=== PATIENT | female | born 1990 | race Caucasian/White ===

== ENCOUNTER 2017-02-28 09:53 | Emergency (ER) | payer OTHER ==
[~2017-02-28] VITALS: Ht 167.6 cm; Wt 61.5 kg
[2017-02-28 09:58] VITALS: BP 109/61
--- NOTE | 2017-02-28 10:10 | NUR ---
27/F BIB FAMILY C/O SHARP LOWER ABDOMINAL PAIN NON RADIATING X TODAY.---DENIES DYSURIA, NO VAG BLEEDING. PT STATED PT JUST FINISHED HER PERIOD YESTERDAY.DENIES N/V/D; SKIN IS PINK/WARM/DRY; AAOX4 WITH EVEN AND STEADY GAIT; LUNGS CLEAR BL; HR EVEN AND REGULAR; PT DENIES ANY FEVER, CP, SOB, OR COUGH AT THIS TIME; PATIENT STATES PAIN OF 10/10 AT THIS TIME; VSS; PATIENT POSITIONED FOR COMFORT; HOB ELEVATED; BEDRAILS UP X2; BED DOWN. ER MD MADE AWARE OF PT STATUS.
--- NOTE | 2017-02-28 11:17 | NUR ---
DR. BERNAL AT BEDSIDE
[2017-02-28] MEDS ORDERED: MORPHINE SULFATE 2 MG/ML SYR IVP ONE (11:25)
[2017-02-28] MEDS ORDERED: NACL 0.9% 1,000 ML IV ONE ×2 (11:25→13:05)
--- NOTE | 2017-02-28 11:32 | NUR ---
PT TAKEN TO US VIA /C ACCOMPANIED BY LANDSCAPING SPECIALIST
--- NOTE | 2017-02-28 13:00 | NUR ---
Patient appears to be resting comfortably in bed. Vital Signs within normal limits. Respirations even and unlabored.WILL CONTINUE TO MONITOR.
[2017-02-28] MEDS ORDERED: cefTRIAXone 1,000 MG VIAL ONE (13:01)
--- NOTE | 2017-02-28 13:51 | NUR ---
Adama beltre in [facility] - 02/28/17 at 1419 by [email or web address] PT TAKEN TO CT VIA JUAN M ACCOMPANIED BY SPECIAL EDUCATION INSTRUCTOR.
--- NOTE | 2017-02-28 14:03 | NUR ---
WENT TO CT VIA WHEELCHAIR, ASSISTED BY FAMILY
--- NOTE | 2017-02-28 14:37 | NUR ---
DISCUSS WITH PT TO EAT NUTRITIOUS FOOD AND FLUID INTAKE AND PT AGREED WITH IT.
--- NOTE | 2017-02-28 14:38 | NUR ---
WENT TO THE BATHROOM AT THIS TIME, PT GINA
[2017-02-28] MEDS ORDERED: ONDANSETRON 4 MG ODT PO ONE (15:00)
[2017-02-28] MEDS: HYDROcodone/APAP 5/325 MG 1 TAB TAB PO ONE ×2 (15:09→15:43)
[2017-02-28] MEDS ORDERED: ONDANSETRON 4 MG/2 ML VIAL IVP ONE (15:15)
--- NOTE | 2017-02-28 15:15 | NUR ---
REPORTED TO PT VOMITTED YELLOWISH CLEAR OUTPUT AFTER GIVING THE ZOFRAN ODT,
--- NOTE | 2017-02-28 15:24 | NUR ---
PT REFUSED NORCO AT THIS TIME, WILL OFFER LATER, JUST RECEIVE ZOFRAN IV
--- NOTE | 2017-02-28 15:39 | NUR ---
DR. BERNAL AT BEDSIDE
--- NOTE | 2017-02-28 15:44 | NUR ---
PT ONLY WANT TO TAKE ONE NORCO
[2017-02-28 16:00] VITALS: BP 100/62
--- NOTE | 2017-02-28 16:01 | NUR ---
Patient discharged with v/s stable. Written and verbal after care instructions given and explained. Patient alert, oriented and verbalized understanding of instructions. Ambulatory with steady gait. All questions addressed prior to discharge. ID band removed. Patient advised to follow up with PMD. Rx of ZOFRAN,CIPRO AND IBUPROFEN given. Patient educated on indication of medication including possible reaction and side effects. Opportunity to ask questions provided and answered.ENCOURAGED FLUID INTAKE AND PT AGREED WITH IT,COPY OF LABS GIVEN AND ADDRESS OF [facility] GIVEN TO FOLLOW UP
== END 2017-02-28 16:01 | disposition home or self-care (01) ==
LOC: MED 09:53
DX: N39.0 Urinary tract infection, site not specified (principal); N83.8 Other noninflammatory disorders of ovary, fallopian tube and broad ligament
CPT/HCPCS: 36415; 74177; 76830; 80053; 81001; 81025; 82150; 83605; 83690; 85025; 87086; 87186; 96361; 96365; 96375; 99285; J0696; J2270; J2405; J7030; J7060; Q9967; S0119

== ENCOUNTER 2018-01-26 13:21 | Emergency (ER) | payer OTHER ==
[~2018-01-26] VITALS: Ht 165.1 cm; Wt 62.3 kg
[2018-01-26 13:43] VITALS: BP 104/67
[2018-01-26 13:48] VITALS: BP 104/67
--- NOTE | 2018-01-26 14:09 | NUR ---
28/F C/O LEFT BREAST PAIN X5 DAYS. DENIES PAST MEDICAL HISTORY. 07/01 PAIN, DENIES MEDICATION USE. DENIES N/V/D; SKIN IS PINK/WARM/DRY; AAOX4 WITH EVEN AND STEADY GAIT; LUNGS CLEAR BL; HR EVEN AND REGULAR; PT DENIES ANY FEVER, CP, SOB, OR COUGH AT THIS TIME; VSS; PATIENT POSITIONED FOR COMFORT; HOB ELEVATED; BEDRAILS UP X2; BED DOWN. ER MD MADE AWARE OF PT STATUS.
[2018-01-26] MEDS ORDERED: KETOROLAC 30 MG/ML VIAL IM ONE (14:30)
[2018-01-26 15:03] LABS: BASOPHILS # (AUTO) 0.1 K/uL (0.00-0.22); BASOPHILS % (AUTO) 0.6 % (0.0-2.0); EOSINOPHILS # (AUTO) 0.1 K/uL (0-0.4); EOSINOPHILS % (AUTO) 1.4 % (0.0-4.0); HEMATOCRIT 36.9 % (36-48); HEMOGLOBIN 12.2 g/dL (12.0-16.0); LYMPHOCYTES # (AUTO) 2.3 K/uL (2.5-16.5); LYMPHOCYTES % (AUTO) 26.5 % (20.5-51.1); MEAN CORPUSCULAR HEMOGLOBIN 30 pg (27-31); MEAN CORPUSCULAR HGB CONC 33 g/dL (33-37); MEAN CORPUSCULAR VOLUME 90.8 fL (80-94); MONOCYTES # (AUTO) 0.9 K/uL (0.8-1.0); MONOCYTES % (AUTO) 10.3 % (1.7-9.3); NEUTROPHILS # (AUTO) 5.4 K/uL (1.8-7.7); NEUTROPHILS % (AUTO) 61.2 % (42.2-75.2); PLATELET COUNT (AUTO) 264 K/uL (140-450); RED BLOOD CELL COUNT(AUTO) 4.06 MIL/uL (4.20-5.40); RED CELL DISTRIBUTION WIDTH 12.8 % (11.6-13.7); WHITE BLOOD COUNT (AUTO) 8.8 K/uL (4.8-10.8)
[2018-01-26 15:12] LABS: ANION GAP 12.6 (8-16); CARBON DIOXIDE 27.1 mmol/L (21-32); CREATININE 0.7 mg/dL (0.6-1.3); POTASSIUM 3.7 mmol/L (3.5-5.1)
[2018-01-26 15:18] LABS: ALBUMIN 3.8 g/dL (3.4-5.0); TOTAL BILIRUBIN 0.1 mg/dL (0.0-1.0)
[2018-01-26 15:44] LABS: CREATINE KINASE MB 0.3 ng/mL (0-3.6)
== END 2018-01-26 16:11 | disposition home or self-care (01) ==
LOC: MED 13:21
DX: R07.89 Other chest pain (principal)
CPT/HCPCS: 36415; 71045; 80053; 81002; 81025; 82550; 82553; 84484; 85025; 93005; 96372; 99285; J1885; Q0092

== ENCOUNTER 2018-11-30 13:14 | Emergency (ER) | payer OTHER ==
[~2018-11-30] VITALS: Ht 165.1 cm; Wt 61.2 kg
[2018-11-30 13:22] VITALS: BP 115/75
--- NOTE | 2018-11-30 13:22 | NUR ---
PT AMBULATED TO ER BED 08
--- NOTE | 2018-11-30 13:25 | NUR ---
URINE CUP HANDED TO PT FOR SAMPLE
--- NOTE | 2018-11-30 14:30 | NUR ---
US at bedside
[2018-11-30 14:52] LABS: BASOPHILS % (AUTO) 0.4 % (0.0-2.0); EOSINOPHILS # (AUTO) 0.1 K/uL (0-0.4); EOSINOPHILS % (AUTO) 1.1 % (0.0-4.0); HEMATOCRIT 36.1 % (36-48); HEMOGLOBIN 11.9 g/dL (12.0-16.0); LYMPHOCYTES # (AUTO) 2.5 K/uL (2.5-16.5); MEAN CORPUSCULAR HEMOGLOBIN 29 pg (27-31); MEAN CORPUSCULAR HGB CONC 33 g/dL (33-37); MEAN CORPUSCULAR VOLUME 88.9 fL (80-94); MONOCYTES # (AUTO) 1.1 K/uL (0.8-1.0); NEUTROPHILS # (AUTO) 7.5 K/uL (1.8-7.7); NEUTROPHILS % (AUTO) 66.5 % (42.2-75.2); PLATELET COUNT (AUTO) 302 K/uL (140-450); RED BLOOD CELL COUNT(AUTO) 4.06 MIL/uL (4.20-5.40); RED CELL DISTRIBUTION WIDTH 14.4 % (11.6-13.7); WHITE BLOOD COUNT (AUTO) 11.3 K/uL (4.8-10.8)
--- NOTE | 2018-11-30 15:00 | NUR ---
PT ON STRETCHER IN SUPINE POSITION EYES OPEN, RESPIS E/U. BED IN LOW POSITION, LOCKED, SIDE RAILS UP, WILL CONTINUE TO MONITOR CLOSELY.
[2018-11-30 16:52] VITALS: BP 120/75
--- NOTE | 2018-11-30 16:52 | NUR ---
Patient discharged with v/s stable. Written and verbal after care instructions given and explained. Patient alert, oriented and verbalized understanding of instructions. Ambulatory with steady gait. All questions addressed prior to discharge. ID band removed. Patient advised to follow up with PMD. Opportunity to ask questions provided and answered.
== END 2018-11-30 16:52 | disposition home or self-care (01) ==
LOC: MED 13:14
DX: O26.891 Other specified pregnancy related conditions, first trimester (principal); R10.32 Left lower quadrant pain; R35.0 Frequency of micturition
CPT/HCPCS: 36415; 76817; 81002; 81025; 84702; 85025; 99284; Q0092

== ENCOUNTER 2018-12-16 14:31 | Emergency (ER) | payer OTHER ==
[~2018-12-16] VITALS: Ht 165.1 cm; Wt 60.3 kg
[2018-12-16 14:46] VITALS: BP 130/67
--- NOTE | 2018-12-16 15:28 | NUR ---
lab getting blooding at this time
[2018-12-16 15:37] LABS: BASOPHILS # (AUTO) 0.1 K/uL (0.00-0.22); BASOPHILS % (AUTO) 0.5 % (0.0-2.0); EOSINOPHILS # (AUTO) 0.1 K/uL (0-0.4); EOSINOPHILS % (AUTO) 0.5 % (0.0-4.0); HEMATOCRIT 37.8 % (36-48); HEMOGLOBIN 12.6 g/dL (12.0-16.0); LYMPHOCYTES # (AUTO) 2.4 K/uL (2.5-16.5); LYMPHOCYTES % (AUTO) 24.3 % (20.5-51.1); MEAN CORPUSCULAR HEMOGLOBIN 30 pg (27-31); MEAN CORPUSCULAR HGB CONC 33 g/dL (33-37); MEAN CORPUSCULAR VOLUME 89.6 fL (80-94); MONOCYTES % (AUTO) 10.2 % (1.7-9.3); NEUTROPHILS # (AUTO) 6.4 K/uL (1.8-7.7); NEUTROPHILS % (AUTO) 64.5 % (42.2-75.2); PLATELET COUNT (AUTO) 302 K/uL (140-450); RED BLOOD CELL COUNT(AUTO) 4.22 MIL/uL (4.20-5.40); RED CELL DISTRIBUTION WIDTH 13.7 % (11.6-13.7)
[2018-12-16 15:42] LABS: APPEARANCE,URINE CLEAR (CLEAR); BILIRUBIN,URINE NEGATIVE (NEGATIVE); BLOOD, URINE 3+ (NEGATIVE); COLOR,URINE YELLOW (YELLOW); LEUKOCYTE ESTERASE ,URINE NEGATIVE (NEGATIVE); NITRITE, URINE NEGATIVE (NEGATIVE); PH,URINE 6.5 (5.0-9.0); UGLUCOSE NEGATIVE (NEGATIVE)
--- NOTE | 2018-12-16 16:00 | NUR ---
1st call, pt not in lobby
[2018-12-16 16:01] LABS: RBC,URINE 0-5 /HPF (0-5)
[2018-12-16 16:05] LABS: WBC,URINE 0-5 /HPF (0-5)
--- NOTE | 2018-12-16 16:12 | NUR ---
PT AMBULATED TO BED 03.
--- NOTE | 2018-12-16 16:27 | NUR ---
PT BIB SELF C/O VAGINAL BLEEDING X1 DAY. PT REPORTS GOING THROUGH 2 PAD PER HOUR. PT DENIES PAIN, N/V/D, FEVER, OR UTI SYMPTOMS. LMP 10/17/18. . PT ADMITS TO MARIJUANA USE 2 WEEKS AGO. VSS. ER TO SEE PT. MEDHX:NONE RX:NONE
[2018-12-16 17:58] VITALS: BP 117/72
--- NOTE | 2018-12-16 17:58 | NUR ---
Patient discharged with v/s stable. Written and verbal after care instructions given and explained. Patient verbalized understanding. Ambulatory with steady gait. All questions addressed prior to discharge. Advised to follow up with PMD.
== END 2018-12-16 17:58 | disposition home or self-care (01) ==
LOC: MED 14:31
DX: O20.9 Hemorrhage in early pregnancy, unspecified (principal); Z3A.01 Less than 8 weeks gestation of pregnancy
CPT/HCPCS: 36415; 76817; 81001; 81025; 84702; 85025; 86900; 86901; 99284; Q0092

== ENCOUNTER 2019-04-12 04:47 | Emergency (ER) | payer OTHER ==
[~2019-04-12] VITALS: Ht 165.1 cm; Wt 59.0 kg
[2019-04-12 04:50] VITALS: BP 120/70
--- NOTE | 2019-04-12 04:55 | NUR ---
PT CAME TO ER C/O OF SUPRAPUBIC SHARP PAIN STARTED AFTER TRYING TO HAVE A BM. PAIN LEVEL 10/10, SHARP. PT ALSO C/O OF DIZZINESS. LAST BM 04/10/19. NO N/V/D. NO MED HX. SAFETY MEASURES IN PLACE. WAITING FOR ERMD TO EVALUATE PT. Addendum: 04/12/19 at 0509 by [email or web address] BOWEL SOUNDS ACTIVE X4 QUADRANTS. SUPRAPUBIC AREA TENDER TO TOUCH. PAIN LEVEL 10/10, SHARP CONSISTENT PAIN.
[2019-04-12] MEDS ORDERED: NACL 0.9% 1,000 ML IV SCH (05:12)
[2019-04-12] MEDS ORDERED: ONDANSETRON 4 MG/2 ML VIAL IVP ONE (05:15)
[2019-04-12] MEDS ORDERED: KETOROLAC 30 MG/ML VIAL IVP ONE (05:15)
--- NOTE | 2019-04-12 05:40 | NUR ---
PT AT CT
[2019-04-12 05:47] LABS: BASOPHILS # (AUTO) 0.1 K/uL (0.00-0.22); BASOPHILS % (AUTO) 1.5 % (0.0-2.0); EOSINOPHILS # (AUTO) 0.1 K/uL (0-0.4); EOSINOPHILS % (AUTO) 1.5 % (0.0-4.0); HEMATOCRIT 38.4 % (36-48); HEMOGLOBIN 13.1 g/dL (12.0-16.0); LYMPHOCYTES # (AUTO) 2.1 K/uL (2.5-16.5); LYMPHOCYTES % (AUTO) 23.9 % (20.5-51.1); MEAN CORPUSCULAR HEMOGLOBIN 30 pg (27-31); MEAN CORPUSCULAR HGB CONC 34 g/dL (33-37); MEAN CORPUSCULAR VOLUME 88.4 fL (80-94); MONOCYTES # (AUTO) 0.4 K/uL (0.8-1.0); MONOCYTES % (AUTO) 4.9 % (1.7-9.3); NEUTROPHILS # (AUTO) 6.1 K/uL (1.8-7.7); NEUTROPHILS % (AUTO) 68.2 % (42.2-75.2); PLATELET COUNT (AUTO) 281 K/uL (140-450); RED BLOOD CELL COUNT(AUTO) 4.34 MIL/uL (4.20-5.40); RED CELL DISTRIBUTION WIDTH 12.8 % (11.6-13.7)
--- NOTE | 2019-04-12 05:54 | NUR ---
PT BACK FROM CT
[2019-04-12 05:58] LABS: BILIRUBIN,URINE NEGATIVE (NEGATIVE); BLOOD, URINE TRACE-L (NEGATIVE); COLOR,URINE YELLOW (YELLOW); LEUKOCYTE ESTERASE ,URINE TRACE (NEGATIVE); NITRITE, URINE NEGATIVE (NEGATIVE); UGLUCOSE NEGATIVE (NEGATIVE)
[2019-04-12 06:07] LABS: ANION GAP 15.4 (8-16); CARBON DIOXIDE 24.6 mmol/L (21-32); CREATININE 0.7 mg/dL (0.6-1.3)
[2019-04-12 06:13] LABS: TOTAL BILIRUBIN 0.3 mg/dL (0.0-1.0)
[2019-04-12] MEDS ORDERED: MORPHINE SULFATE 4 MG/ML SYR IVP ONE (06:25)
[2019-04-12] MEDS ORDERED: POTASSIUM CHLORIDE 10 MEQ TABER PO ONE (06:25)
[2019-04-12 06:31] LABS: APPEARANCE,URINE SLIGHTLY HAZY (CLEAR)
[2019-04-12 06:33] LABS: RBC,URINE NONE SEEN /HPF (0-5); WBC,URINE 0-5 /HPF (0-5)
[2019-04-12 07:06] VITALS: BP 104/58
--- NOTE | 2019-04-12 07:13 | NUR ---
Patient discharged with v/s stable. Written and verbal after care instructions given and explained. Patient alert, oriented and verbalized understanding of instructions. Ambulatory with steady gait. All questions addressed prior to discharge. ID band removed. Patient advised to follow up with PMD. Rx of motrin, zofran, norco given. Patient educated on indication of medication including possible reaction and side effects. Opportunity to ask questions provided and answered.
== END 2019-04-12 07:13 | disposition home or self-care (01) ==
LOC: MED 04:47
DX: R10.30 Lower abdominal pain, unspecified (principal); R11.0 Nausea
CPT/HCPCS: 36415; 74176; 80053; 81001; 81025; 83690; 85025; 96374; 96375; 99284; J1885; J2270; J2405; J7030